=== PATIENT | female | born 1940 | race Caucasian/White ===

== ENCOUNTER 2017-02-07 19:20 | Emergency (ER) | payer OTHER ==
[~2017-02-07] VITALS: Ht 170.2 cm; Wt 136.1 kg
[2017-02-07] MEDS ORDERED: SODIUM CHLORIDE 0.9% 500 ML IVB ONE (20:09)
[2017-02-07] MEDS ORDERED: ONDANSETRON HCL 4 MG/2 ML VIAL IV ONE (20:15)
[2017-02-07] MEDS ORDERED: HYDROmorphone HCL 2 MG/ML VL IV ONE (20:15)
[2017-02-07 20:48] LABS: Basophils # (auto) 0.1 uL; Basophils % (auto) 0.4 % (0.0-2.0); Eosinophils # (auto) 0.3 uL; Hematocrit 43.2 % (36.0-46.0); Hemoglobin 14.3 g/dL (12.2-16.2); Lymphocytes # (auto) 2.9 uL; Lymphocytes % (auto) 20.1 % (10.0-50.0); Mean Corpuscular Hemoglobin 30.8 pg (28.0-32.0); Mean Corpuscular Hgb Conc. 33.2 g/dL (32.0-36.0); Mean Platelet Volume 10.4 fL (7.4-10.4); Monocytes # (auto) 0.8 uL; Monocytes % (auto) 5.7 % (0.0-12.0); Neutrophils # (auto) 10.5 uL; Neutrophils % (auto) 71.8 % (37.0-80.0); Platelet Count (auto) 288 10^3/uL (140-450); Red Cell Distribution Width 13.8 % (11.6-16.0); White Blood Cell 14.6 10^3/uL (4.4-10.8)
[2017-02-07 21:10] LABS: Albumin 2.7 g/dL (3.4-5.0); BUN/Creatinine Ratio 19.1; Calcium 8.4 mg/dL (8.5-10.1); Magnesium 1.7 mg/dL (1.6-2.6); Potassium 3.4 mmol/L (3.5-5.1)
[2017-02-07 21:13] LABS: Bilirubin, Total 0.6 mg/dL (0.2-1.0); Total Protein 7.2 g/dL (6.4-8.2)
[2017-02-07 21:14] LABS: INR 0.95 (0.9-1.15); Partial Thromboplastin Time 25.7 sec (22.64-33.71); Prothrombin Time 10.4 sec (9.37-12.3)
[2017-02-07 22:22] LABS: Urine Bilirubin Negative (Negative); Urine Color Yellow (Yellow); Urine Glucose Normal (Normal); Urine Ketone Negative (Negative); Urine Mucus MODERATE (None Seen); Urine RBC 75 /hpf (0 - 4); Urine Urobilinogen Normal (Negative); Urine WBC Clumps PRESENT /hpf (None Seen); Urine pH 5.5 (5.0-8.0)
[2017-02-07 22:29] LABS: Urine Blood 1+ /uL (Negative); Urine Nitrite POSITIVE (Negative)
[2017-02-07] MEDS ORDERED: CEFTRIAXONE SODIUM 2 GM in D5W 5% 50 ML IV ONE (23:00)
[2017-02-07] MEDS ORDERED: cefTRIAXone 1GM/50ML D5W 100 ML IV ONE (23:08)
[2017-02-08 01:20] VITALS: BP 98/54
== END 2017-02-08 01:44 | disposition short-term general hospital (02) ==
LOC: EDBD 19:20 → ER 19:30
DX: N12 Tubulo-interstitial nephritis, not specified as acute or chronic (principal); I10 Essential (primary) hypertension; E11.9 Type 2 diabetes mellitus without complications; Z90.710 Acquired absence of both cervix and uterus; Z91.013 Allergy to seafood; Z85.41 Personal history of malignant neoplasm of cervix uteri; Z86.73 Personal history of transient ischemic attack (TIA), and cerebral infarction without residual deficits; Z88.6 Allergy status to analgesic agent
CPT/HCPCS: 36415; 71010; 74176; 80053; 81001; 82150; 83605; 83690; 83735; 85025; 85610; 85730; 87086; 87088; 87186; 93005; 94761; 96361; 96365; 96375; 99285; J0696; J1170; J2405; J7040; J7060

== ENCOUNTER 2017-03-06 07:48 | Emergency (ER) | payer OTHER ==
[2017-03-06] MEDS ORDERED: SODIUM CHLORIDE 0.9% 1,000 ML IV ONE (08:07)
[2017-03-06 09:11] LABS: Basophils # (auto) 0 uL; Basophils % (auto) 0.3 % (0.0-2.0); CONDITION Y; Eosinophils # (auto) 0.4 uL; Eosinophils % (auto) 3.7 % (0.0-7.0); Hematocrit 43.1 % (36.0-46.0); Hemoglobin 14.2 g/dL (12.2-16.2); Lymphocytes # (auto) 2.3 uL; Lymphocytes % (auto) 19.9 % (10.0-50.0); Mean Corpuscular Hemoglobin 30.8 pg (28.0-32.0); Mean Corpuscular Volume 93.4 fL (80.0-100.0); Mean Platelet Volume 10.6 fL (7.4-10.4); Monocytes # (auto) 0.4 uL; Monocytes % (auto) 3.2 % (0.0-12.0); Neutrophils # (auto) 8.3 uL; Neutrophils % (auto) 72.9 % (37.0-80.0); Platelet Count (auto) 267 10^3/uL (140-450); Red Cell Distribution Width 14.3 % (11.6-16.0); White Blood Cell 11.4 10^3/uL (4.4-10.8)
[2017-03-06 09:14] LABS: Urine Bilirubin Negative (Negative); Urine Blood Negative /uL (Negative); Urine Color Red (Yellow); Urine Glucose Normal (Normal); Urine Ketone Negative (Negative); Urine Mucus FEW (None Seen); Urine Nitrite Negative (Negative); Urine RBC 19 /hpf (0 - 4); Urine Squamous Epithelial Cell FEW /hpf (<5); Urine Triple Phosphate Crystal FEW /hpf (None Seen); Urine Urobilinogen Normal (Negative); Urine WBC Clumps PRESENT /hpf (None Seen); Urine pH 8.5 (5.0-8.0)
[2017-03-06 09:25] LABS: INR 0.98 (0.9-1.15); Partial Thromboplastin Time 26.1 sec (22.64-33.71); Prothrombin Time 10.7 sec (9.37-12.3)
[2017-03-06 09:34] LABS: Albumin 2.6 g/dL (3.4-5.0); BUN/Creatinine Ratio 18.3; Calcium 8.7 mg/dL (8.5-10.1); Magnesium 1.9 mg/dL (1.6-2.6); Potassium 3.6 mmol/L (3.5-5.1)
[2017-03-06 09:36] LABS: Bilirubin, Total 0.8 mg/dL (0.2-1.0); Total Protein 6.9 g/dL (6.4-8.2)
[2017-03-06] MEDS ORDERED: cefTRIAXone 1GM/50ML D5W 50 ML IV ONE (11:15)
[2017-03-06 14:30] VITALS: BP 122/77
== END 2017-03-06 16:31 | disposition home or self-care (01) ==
LOC: EDBD 07:48 → ER 07:48
DX: N39.0 Urinary tract infection, site not specified (principal); E66.9 Obesity, unspecified; E46 Unspecified protein-calorie malnutrition; E11.9 Type 2 diabetes mellitus without complications; I10 Essential (primary) hypertension; Z90.49 Acquired absence of other specified parts of digestive tract; Z68.39 Body mass index [BMI] 39.0-39.9, adult; Z90.710 Acquired absence of both cervix and uterus; Z90.89 Acquired absence of other organs; Z88.6 Allergy status to analgesic agent; Z91.013 Allergy to seafood
CPT/HCPCS: 36415; 71010; 80053; 81001; 83735; 84443; 85025; 85610; 85730; 93005; 94761; 96361; 96365; 99285; J0696

== ENCOUNTER 2017-04-15 13:39 | Inpatient (IN) | payer OTHER ==
[~2017-04-15] VITALS: Ht 167.6 cm; Wt 63.5 kg
[2017-04-15] MEDS ORDERED: SODIUM CHLORIDE 0.9% 1,000 ML IV ONE (13:49)
[2017-04-15] MEDS ORDERED: ONDANSETRON HCL 4 MG/2 ML VIAL IV ONE (14:00)
[2017-04-15 14:19] LABS: Basophils # (auto) 0 uL; CONDITION Y; Eosinophils # (auto) 0 uL; Eosinophils % (auto) 0.2 % (0.0-7.0); Hematocrit 43.2 % (36.0-46.0); Hemoglobin 14.8 g/dL (12.2-16.2); Lymphocytes # (auto) 0.7 uL; Lymphocytes % (auto) 7.9 % (10.0-50.0); Mean Corpuscular Hgb Conc. 34.3 g/dL (32.0-36.0); Mean Corpuscular Volume 90.3 fL (80.0-100.0); Mean Platelet Volume 10.4 fL (7.4-10.4); Monocytes # (auto) 0.5 uL; Monocytes % (auto) 5.4 % (0.0-12.0); Neutrophils # (auto) 7.7 uL; Neutrophils % (auto) 86.5 % (37.0-80.0); Platelet Count (auto) 163 10^3/uL (140-450); Red Cell Distribution Width 14.1 % (11.6-16.0); White Blood Cell 8.9 10^3/uL (4.4-10.8)
[2017-04-15 15:53] LABS: INR 0.98 (0.9-1.15); Partial Thromboplastin Time 27.3 sec (22.64-33.71); Prothrombin Time 10.7 sec (9.37-12.3)
[2017-04-15 16:05] LABS: Chloride 102 mmol/L (98-107); Potassium 3.5 mmol/L (3.5-5.1); Sodium 137 mmol/L (136-145)
[2017-04-15 16:05] LABS: Urine Bilirubin Negative (Negative); Urine Blood 2+ /uL (Negative); Urine Color Yellow (Yellow); Urine Glucose Normal (Normal); Urine Ketone 1+ (Negative); Urine Nitrite POSITIVE (Negative); Urine RBC 129 /hpf (0 - 4); Urine Urobilinogen Normal (Negative); Urine WBC Clumps PRESENT /hpf (None Seen); Urine pH 5.5 (5.0-8.0)
[2017-04-15 16:06] LABS: Alkaline Phosphatase 128 U/L (45-117); Anion Gap 9 (5-15); Aspartate Aminotransferase 13 U/L (15-37); BUN/Creatinine Ratio 19.4; Blood Urea Nitrogen 13 mg/dL (7-18); Calcium 8.4 mg/dL (8.5-10.1); Carbon Dioxide 26 mmol/L (21-32); GFR African American 111 mL/min; GFR Non-African American 91 mL/min; Glucose 170 mg/dL (74-106)
[2017-04-15 16:07] LABS: Albumin 2.5 g/dL (3.4-5.0); Bilirubin, Total 0.6 mg/dL (0.2-1.0); Total Protein 7.4 g/dL (6.4-8.2)
[2017-04-15] MEDS ORDERED: HYDROcodone-ACET 5/325MG TAB PO PRN (16:15)
[2017-04-15] MEDS ORDERED: PROMETHAZINE HCL 25 MG/ML 1ML IV PRN (16:15)
[2017-04-15] MEDS ORDERED: NITROGLYCERIN 0.4 MG SL TAB SL PRN (16:15)
[2017-04-15] MEDS ORDERED: ACETAMINOPHEN 500 MG TAB PO PRN (16:15)
[2017-04-15] MEDS ORDERED: LORazepam 0.5 MG TAB PO PRN (16:15)
[2017-04-15] MEDS ORDERED: cefTRIAXone 1GM/50ML D5W 50 ML IV ONE (16:15)
[2017-04-15] MEDS ORDERED: HYDROmorphone HCL 2 MG/ML VL IV PRN (16:15)
[2017-04-15] MEDS ORDERED: DEXTROSE (50%) 50ML SYRG IV PRN (16:15)
[2017-04-15] MEDS ORDERED: TEMAZEPAM 15 MG CAP PO PRN (16:15)
[2017-04-15] MEDS: SODIUM CHLORIDE 0.9% 1,000 ML IV SCH (16:25)
[2017-04-15 18:00] VITALS: BP 114/54
[2017-04-15] MEDS: ACCU-CHEK COMFORT CURVE STRIP VI SCH (18:21)
[2017-04-15] MEDS ORDERED: PIPERACILLIN-TAZOB 3.375GM 100 ML IV ONE (18:30)
[2017-04-15 18:39] LABS: Amylase 16 U/L (25-115)
[2017-04-15 20:00] VITALS: BP 124/63
[2017-04-15] MEDS: FAMOTIDINE 20 MG TAB PO SCH (21:44)
[2017-04-15 22:00] VITALS: BP 124/73
[2017-04-15 23:46] VITALS: BP 124/63
[2017-04-16] MEDS: PIPERACILLIN-TAZOB 3.375GM 100 ML IV SCH ×4 (00:32→18:44)
[2017-04-16] MEDS: ACCU-CHEK COMFORT CURVE STRIP VI SCH ×4 (06:24→18:44)
[2017-04-16 06:29] VITALS: BP 120/54
[2017-04-16 08:00] VITALS: BP 110/56
[2017-04-16 08:50] VITALS: BP 110/56
[2017-04-16] MEDS ORDERED: cefTRIAXone 1GM/50ML D5W 50 ML IV SCH (09:00)
[2017-04-16] MEDS ORDERED: ENOXAPARIN SOD 40 MG/0.4 ML SYRINGE SC SCH (10:00)
[2017-04-16] MEDS: FAMOTIDINE 20 MG TAB PO SCH (10:52)
[2017-04-16] MEDS: SODIUM CHLORIDE 0.9% 1,000 ML IV SCH ×2 (12:14→12:18)
[2017-04-16 13:13] VITALS: BP 113/57
[2017-04-16] MEDS ORDERED: NITROFURANTOIN (MONO) 100 mg CAP PO ONE (13:45)
[2017-04-16 16:38] VITALS: BP 125/65
[2017-04-16] MEDS ORDERED: NITROFURANTOIN (MONO) 100 mg CAP PO SCH (22:00)
== END 2017-04-16 21:17 | disposition short-term general hospital (02) | DRG 689 ==
LOC: EDBD 13:39 → EDUNIT# 13:39 → ER 13:45 → TELE 13:46 → CENTRAL 17:59
PROVIDERS: ADMIT Internal Medicine; ATTEND Internal Medicine
DX: N39.0 Urinary tract infection, site not specified (principal); E43 Unspecified severe protein-calorie malnutrition; I69.351 Hemiplegia and hemiparesis following cerebral infarction affecting right dominant side; I69.320 Aphasia following cerebral infarction; I10 Essential (primary) hypertension; E66.9 Obesity, unspecified; R13.10 Dysphagia, unspecified; R73.9 Hyperglycemia, unspecified; Z87.440 Personal history of urinary (tract) infections; Z88.5 Allergy status to narcotic agent; Z91.013 Allergy to seafood; Z68.22 Body mass index [BMI] 22.0-22.9, adult; I69.322 Dysarthria following cerebral infarction; I69.391 Dysphagia following cerebral infarction
CPT/HCPCS: 36415; 71010; 74176; 80053; 81001; 82150; 82962; 83036; 83690; 83735; 84484; 85025; 85610; 85730; 87081; 87086; 87088; 87186; 93005; 96361; 96365; 96375; J0696; J2405; J2543

== ENCOUNTER 2017-06-22 04:34 | Emergency (ER) | payer OTHER ==
[~2017-06-22] VITALS: Ht 160 cm; Wt 72.6 kg
[2017-06-22 06:08] LABS: Urine Bilirubin Negative (Negative); Urine Blood 1+ /uL (Negative); Urine Color Yellow (Yellow); Urine Glucose Normal (Normal); Urine Ketone Negative (Negative); Urine Mucus FEW (None Seen); Urine Nitrite POSITIVE (Negative); Urine RBC 62 /hpf (0 - 4); Urine Squamous Epithelial Cell FEW /hpf (<5); Urine Urobilinogen Normal (Negative); Urine pH 8.5 (5.0-8.0)
[2017-06-22 06:09] LABS: Basophils # (auto) 0.1 uL; Basophils % (auto) 0.2 % (0.0-2.0); Eosinophils # (auto) 0 uL; Eosinophils % (auto) 0.1 % (0.0-7.0); Hematocrit 39.8 % (36.0-46.0); Hemoglobin 13.2 g/dL (12.2-16.2); Lymphocytes # (auto) 1.7 uL; Lymphocytes % (auto) 7.2 % (10.0-50.0); Mean Corpuscular Hgb Conc. 33.2 g/dL (32.0-36.0); Mean Corpuscular Volume 93.4 fL (80.0-100.0); Mean Platelet Volume 10.8 fL (6.9-10.8); Monocytes # (auto) 1.1 uL; Monocytes % (auto) 4.5 % (0.0-12.0); Neutrophils # (auto) 21.4 uL; Platelet Count (auto) 286 10^3/uL (140-450); Red Cell Distribution Width 15.2 % (11.8-14.3); White Blood Cell 24.3 10^3/uL (4.4-10.8)
[2017-06-22 06:18] LABS: Albumin 2.6 g/dL (3.4-5.0); BUN/Creatinine Ratio 11.6; Calcium 8.9 mg/dL (8.5-10.1); Potassium 3.4 mmol/L (3.5-5.1)
[2017-06-22] MEDS ORDERED: SODIUM CHLORIDE 0.9% 1,000 ML IV ONE (06:18)
[2017-06-22 06:21] LABS: Bilirubin, Total 0.8 mg/dL (0.2-1.0); Total Protein 6.8 g/dL (6.4-8.2)
[2017-06-22] MEDS ORDERED: LEVOFLOXACIN 500MG 100 ML IV ONE (06:30)
[2017-06-22 08:04] LABS: Lactic Acid w/Reflex 2.8 mmol/L (0.4-2.0)
[2017-06-22 08:07] LABS: REFLEX LACTIC ACID YES OR NO YES
[2017-06-22] MEDS ORDERED: metroNIDAZOLE 500MG/100ML 100 ML IV ONE (08:15)
[2017-06-22 10:56] VITALS: BP 135/61
== END 2017-06-22 11:43 | disposition short-term general hospital (02) ==
LOC: EDBD 04:34 → ER 04:36
DX: A41.9 Sepsis, unspecified organism (principal); E87.6 Hypokalemia; E11.9 Type 2 diabetes mellitus without complications; E78.5 Hyperlipidemia, unspecified; I10 Essential (primary) hypertension; N39.0 Urinary tract infection, site not specified; Z87.440 Personal history of urinary (tract) infections; Z90.49 Acquired absence of other specified parts of digestive tract; Z90.710 Acquired absence of both cervix and uterus
CPT/HCPCS: 36415; 74176; 80053; 81001; 82150; 83605; 83690; 83735; 85025; 87040; 94761; 96365; 96367; 99285; J1956; J3490

== ENCOUNTER 2017-07-16 13:37 | Observation (INO) | payer OTHER ==
[~2017-07-16] VITALS: Ht 160 cm; Wt 72.6 kg
[2017-07-16] MEDS ORDERED: SODIUM CHLORIDE 0.9% 1,000 ML IVB ONE (13:47)
[2017-07-16] MEDS ORDERED: ASPirin 81 mg TAB PO ONE (15:00)
[2017-07-16 15:09] LABS: Basophils # (auto) 0.1 uL; Basophils % (auto) 0.3 % (0.0-2.0); Eosinophils # (auto) 0.1 uL; Eosinophils % (auto) 0.3 % (0.0-7.0); Hemoglobin 13.1 g/dL (12.2-16.2); Lymphocytes % (auto) 6.2 % (10.0-50.0); Mean Corpuscular Hemoglobin 31.4 pg (28.0-32.0); Mean Corpuscular Hgb Conc. 31.1 g/dL (32.0-36.0); Mean Corpuscular Volume 100.8 fL (80.0-100.0); Mean Platelet Volume 9.8 fL (6.9-10.8); Monocytes # (auto) 0.7 uL; Monocytes % (auto) 4.4 % (0.0-12.0); Neutrophils # (auto) 13.8 uL; Neutrophils % (auto) 88.8 % (37.0-80.0); Platelet Count (auto) 218 10^3/uL (140-450); Red Cell Distribution Width 15.5 % (11.8-14.3); White Blood Cell 15.6 10^3/uL (4.4-10.8)
[2017-07-16 15:25] LABS: Lactic Acid w/Reflex 4.3 mmol/L (0.4-2.0)
[2017-07-16 15:26] LABS: REFLEX LACTIC ACID YES OR NO YES
[2017-07-16 15:35] LABS: INR 0.95 (0.9-1.15); Partial Thromboplastin Time 21.4 sec (22.64-33.71); Prothrombin Time 10.3 sec (9.37-12.3)
[2017-07-16] MEDS ORDERED: VANCOMYCIN 1GM/250ML 250 ML IV ONE (16:30)
[2017-07-16] MEDS ORDERED: cefTRIAXone 1GM/50ML D5W 50 ML IV ONE (16:30)
[2017-07-16] MEDS ORDERED: ENOXAPARIN SOD 80 MG/0.8ML SYRINGE SC ONE (16:45)
[2017-07-16] MEDS ORDERED: SODIUM CHLORIDE 0.9% 1,000 ML IV ONE (17:15)
[2017-07-16 17:22] LABS: Urine Bilirubin Negative (Negative); Urine Blood 2+ /uL (Negative); Urine Glucose Normal (Normal); Urine Ketone Negative (Negative); Urine Nitrite POSITIVE (Negative); Urine RBC 13 /hpf (0 - 4); Urine Urobilinogen Normal (Negative); Urine WBC Clumps PRESENT /hpf (None Seen)
[2017-07-16 17:28] LABS: Albumin 2.2 g/dL (3.4-5.0); Alkaline Phosphatase 76 U/L (45-117); Anion Gap 10 (5-15); Aspartate Aminotransferase 14 U/L (15-37); BUN/Creatinine Ratio 18.5; Bilirubin, Total 0.5 mg/dL (0.2-1.0); Blood Urea Nitrogen 15 mg/dL (7-18); Calcium 8.1 mg/dL (8.5-10.1); Carbon Dioxide 26 mmol/L (21-32); Chloride 107 mmol/L (98-107); GFR African American 89 mL/min; GFR Non-African American 73 mL/min; Glucose 170 mg/dL (74-106); Potassium 3.1 mmol/L (3.5-5.1); Sodium 143 mmol/L (136-145); Total Protein 6.2 g/dL (6.4-8.2)
[2017-07-16 17:45] LABS: Urine Color Yellow (Yellow)
[2017-07-16] MEDS ORDERED: POTASSIUM CHL 10% (20 MEQ/15ML) 15ml ORAL SOLN PO ONE (19:45)
[2017-07-16 21:14] VITALS: BP 159/59
== END 2017-07-16 19:30 | disposition home or self-care (01) | DRG 872 ==
LOC: ER 13:37 → EDBD 13:37 → OVERFLOW 13:49 → ER 19:30
PROVIDERS: ADMIT Family Medicine; ATTEND Family Medicine
DX: A41.9 Sepsis, unspecified organism (principal); G93.89 Other specified disorders of brain; E11.9 Type 2 diabetes mellitus without complications; N39.0 Urinary tract infection, site not specified; I10 Essential (primary) hypertension; E87.6 Hypokalemia; Z86.73 Personal history of transient ischemic attack (TIA), and cerebral infarction without residual deficits; E78.5 Hyperlipidemia, unspecified; R74.0 Nonspecific elevation of levels of transaminase and lactic acid dehydrogenase [LDH]; R11.2 Nausea with vomiting, unspecified
CPT/HCPCS: 36415; 70450; 71010; 80053; 80307; 80320; 81001; 83605; 83735; 84484; 85025; 85379; 85610; 85730; 87040; 87086; 87088; 87186; 93005; 93970; 96361; 96365; 96368; 99285; G0378; J0696; J1650; J3370; J7030